=== PATIENT | male | born 1975 | race Caucasian/White ===

== ENCOUNTER 2018-11-14 01:08 | Emergency (ER) | payer OTHER ==
--- NOTE | 2018-11-14 01:51 | ED Physician Documentation ---
PD HPI ABD PAIN - Stated complaint Stated Complaint: LT SIDE PX - Chief complaint Chief Complaint: Trauma Abd - History obtained from History obtained from: Patient - History of Present Illness Timing - onset: How many weeks ago (1) Timing - details: Abrupt onset Pain level now: 6 Quality: Pain Location: LUQ Improved by: Laying still Worsened by: Moving, Palpation Associated symptoms: No: Nausea, Vomiting Similar symptoms before: Has not had sx before Recently seen: Not recently seen - Additional information Additional information: fell at home 1 week ago, got up from bed to use bathroom, became lightheaded and had brief syncopal episode, LUQ abd. struck corner of furniture. he had immediate pain but mild and thus did not seek medical attention. tonight he had sudden recurrence of LUQ pain, worse than before, and without apparent inciting/exacerbating factor(s). patient says he has had syncope before under similar circumstances (getting up from sitting or lying down). Review of Systems Cardiac: reports: Reviewed and negative Respiratory: reports: Reviewed and negative GI: reports: Abdominal Pain. denies: Nausea, Vomiting PD PAST MEDICAL HISTORY - Past Medical History Past Medical History: Yes Cardiovascular: Hypertension Psych: Anxiety - Past Surgical History Past Surgical History: Yes Ortho: Other - Present Medications Home Medications: Ambulatory Orders Medication Instructions Recorded Confirmed Duloxetine HCl 1 cap PO DAILY 11/14/18 11/14/18 Hydrocodone/Acetaminophen 1 - 2 each PO Q6H PRN #14 tablet 11/14/18 [Hydrocodon-Acetaminophen 5-325] Lisinopril 1 tab PO DAILY 11/14/18 11/14/18 - Allergies Allergies/Adverse Reactions: Allergies Allergy/AdvReac Type Severity Reaction Status Date / Time antrax Allergy Hives Uncoded 11/14/18 01:25 - Social History Does the pt smoke?: No Smoking Status: Never smoker Does the pt drink ETOH?: No Does the pt have substance abuse?: No - Immunizations Immunizations are current?: Yes - POLST Patient has POLST: No PD ED PE NORMAL - Vitals Vital signs reviewed: Yes - General General: Alert and oriented X 3, No acute distress, Well developed/nourished - Cardiac Cardiac: RRR, No murmur - Respiratory Respiratory: No respiratory distress, Clear bilaterally - Abdomen Abdomen: Normal bowel sounds, Soft, Non distended, Other (LUQ tenderness without rebound or guarding) PD ED PE EXPANDED - Free text exam Free text exam: left lower anterolateral chest wall tenderness Results - Vitals Vitals: Oxygen O2 Source Room air - Labs Labs: Laboratory Tests 11/14/18 11/14/18 11/14/18 01:45 02:22 02:22 WBC 7.3 RBC 4.79 Hgb 14.2 Hct 40.9 L MCV 85.4 MCH 29.6 MCHC 34.7 RDW 12.0 Plt Count 258 MPV 9.9 Neut # (Auto) 3.2 Lymph # (Auto) 3.3 [place] # (Auto) 0.4 Eos # (Auto) 0.4 Baso # (Auto) 0.1 Absolute Nucleated RBC 0.00 Nucleated RBC % 0.0 Sodium 137 Potassium 3.8 Chloride 101 Carbon Dioxide 25 Anion Gap 11.0 BUN 19 Creatinine 1.1 Estimated GFR (MDRD) 73 L Glucose 92 Calcium 9.3 Urine Color YELLOW Urine Clarity CLEAR Urine pH 6.0 Ur Specific [place] <=1.005 Urine Protein NEGATIVE Urine Glucose (UA) NEGATIVE Urine Ketones NEGATIVE Urine Occult Blood NEGATIVE Urine Nitrite NEGATIVE Urine Bilirubin NEGATIVE Urine Urobilinogen 0.2 (NORMAL) Ur Leukocyte Esterase NEGATIVE Ur Microscopic Review NOT INDICATED Urine Culture Comments NOT INDICATED - Rads (name of study) cxr Radiology: Prelim report reviewed, See rad report CT A/P Radiology: Prelim report reviewed, See rad report PD MEDICAL DECISION MAKING - ED course Complexity details: reviewed results, re-evaluated patient, considered differential, d/w patient Departure - Departure Disposition: 01 Home, Self Care Clinical Impression: Rib fracture Condition: Good Instructions: ED Fx Rib Prescriptions: Hydrocodone/Acetaminophen [Hydrocodon-Acetaminophen 5-325] 1 - 2 each PO Q6H PRN #14 tablet PRN Reason: pain Discharge Date/Time: 11/14/18 04:37
[2018-11-14 01:54] LABS: BILIRUBIN,URINE NEGATIVE (NEGATIVE); CLARITY,URINE CLEAR (CLEAR); GLUCOSE, URINE (UA) NEGATIVE (NEGATIVE); KETONES,URINE (UA) NEGATIVE (NEGATIVE); LEUKOCYTE ESTERASE, URINE NEGATIVE (NEGATIVE); NITRITE,URINE NEGATIVE (NEGATIVE); OCCULT BLOOD,URINE NEGATIVE (NEGATIVE); PROTEIN,URINE NEGATIVE (NEGATIVE); UROBILINOGEN,URINE 0.2 (NORMAL) E.U./dL (NORMAL)
[2018-11-14] MEDS ORDERED: KETOROLAC 30 MG/ML VIAL IVP STA (02:13)
[2018-11-14 02:32] LABS: BASOPHILS # (AUTO) 0.1 10^3/uL (0.0-0.1); EOSINOPHILS # (AUTO) 0.4 10^3/uL (0.0-0.7); EOSINOPHILS % (AUTO) 5.1 %; HGB - HEMOGLOBIN 14.2 g/dL (14.0-18.0); LYMPHOCYTES # (AUTO) 3.3 10^3/uL (1.5-3.5); LYMPHOCYTES % (AUTO) 44.9 %; MEAN CORPUSCULAR HEMOGLOBIN 29.6 pg (27.0-31.0); MEAN CORPUSCULAR HGB CONC 34.7 g/dL (32.0-36.0); MEAN CORPUSCULAR VOLUME 85.4 fL (80.0-94.0); MEAN PLATELET VOLUME 9.9 fL (7.4-11.4); MONOCYTES # (AUTO) 0.4 10^3/uL (0.0-1.0); MONOCYTES % (AUTO) 5.5 %; NEUTROPHILS # (AUTO) 3.2 10^3/uL (1.5-6.6); NEUTROPHILS % (AUTO) 43.4 %; PLT - PLATELET COUNT 258 10^3/uL (130-450); RED BLOOD COUNT 4.79 10^6/uL (4.70-6.10); WHITE BLOOD COUNT 7.3 x10^3/uL (4.8-10.8)
[2018-11-14 02:40] LABS: CALCIUM 9.3 mg/dL (8.5-10.3); CREATININE 1.1 mg/dL (0.6-1.2)
[2018-11-14] MEDS ORDERED: IOVERSOL 320 100 ML VIAL IVP ONE ×2 (02:40→03:23)
--- NOTE | 2018-11-14 03:41 | XRAY Report ---
Reason: left low chest pain, injury Procedure Date: 11/14/2018 Accession Number: [id number] / [id number] Procedure: XR - Chest 2 View X-Ray CPT Code: 59599 FULL RESULT: EXAM: CHEST RADIOGRAPHY EXAM DATE: 11/14/2018 03:19 AM. CLINICAL HISTORY: Left low chest pain, injury. COMPARISON: None. TECHNIQUE: 2 views. FINDINGS: Lungs/Pleura: No focal opacities evident. No pleural effusion. No pneumothorax. Normal volumes. Mediastinum: Heart and mediastinal contours are unremarkable. Other: None. IMPRESSION: Normal 2-view chest radiography. [facility]
--- NOTE | 2018-11-14 03:48 | CT Report ---
Reason: LUQ pain, injury Procedure Date: 11/14/2018 Accession Number: [id number] / [id number] Procedure: CT - Abdomen/Pelvis W CPT Code: FULL RESULT: EXAM: CT ABDOMEN AND PELVIS EXAM DATE: 11/14/2018 03:20 AM. CLINICAL HISTORY: Left-sided pain after injury. COMPARISONS: None. TECHNIQUE: Routine helical CT imaging was performed through the abdomen and pelvis. IV contrast: OPTI 320 100ML. Enteric contrast: No. Reconstructions: Coronal and sagittal. In accordance with CT protocol optimization, one or more of the following dose reduction techniques were utilized for this exam: automated exposure control, adjustment of mA and/or KV based on patient size, or use of iterative reconstructive technique. FINDINGS: Lung Bases: Unremarkable. Liver: Possible fatty infiltration. Gallbladder/Bile Ducts: Unremarkable. Spleen: Mildly enlarged at 13.3 cm. Pancreas: Normal. Adrenal Glands: Normal. Kidneys: Normal. No masses or hydronephrosis. Peritoneal Cavity/Bowel: Moderate stool in the colon. No bowel obstruction seen. No free air or free fluid. There may be some diverticula. No diverticulitis is seen. Multiple normal-sized mesenteric lymph nodes are seen. Appendix appears normal. Pelvic Organs: Normal. The bladder and visualized pelvic organs are within normal limits. Vasculature: No aneurysms or other significant abnormality. Bones: Postoperative changes at L5-S1. Nondisplaced left ninth rib fracture. Other: None. IMPRESSION: 1. Nondisplaced left ninth rib fracture. 2. No acute posttraumatic findings are seen in the abdomen or pelvis. 3. Fatty liver and mild splenomegaly. 4. Moderate stool in the colon. [facility]
[2018-11-14] MEDS ORDERED: HYDROcod/ACET 5/325 Prepack 4 PO STA (04:28)
[2018-11-14 04:40] VITALS: BP 111/67
== END 2018-11-14 04:37 | disposition home or self-care (01) ==
LOC: ED 01:08
DX: S22.32XA Fracture of one rib, left side, initial encounter for closed fracture (principal); W18.30XA Fall on same level, unspecified, initial encounter; Y93.89 Activity, other specified; Y92.009 Unspecified place in unspecified non-institutional (private) residence as the place of occurrence of the external cause; I10 Essential (primary) hypertension
CPT/HCPCS: 36415; 71046; 74177; 80048; 81003; 85025; 96374; 99283; 99284; Q9967; 81001; 87086